=== PATIENT | male | born 1950 | race Hispanic/Latino ===

== ENCOUNTER 2017-06-28 20:58 | Observation (INO) | payer MEDICARE, BC ==
[2017-06-28 20:58] VITALS: BMI 31.8
--- NOTE | 2017-06-28 21:15 | ED PDOC ---
Arrival/HPI - General Chief Complaint: Chest Pain Time Seen by Provider: 06/28/17 21:00 Historian: Patient - History of Present Illness Narrative History of Present Illness (Text): 06/28/17 21:12 Shawn Gordon is a 67 year old male, whose past medical; history includes hyperlipidemia, CAD with stents, and OK, who presents to the Emergency department complaining of mid-sternal chest pain tonight. Patient also reports associated shakiness. Patient notes he recently saw his PMD and underwent a stress test, stopped after 10 minutes due to fatigue. Patient denies any fever, chills, shortness of breath, nausea, vomiting, diarrhea, urinary symptoms, back pain, neck pain, headache, dizziness, or any other complaints. PMD: Dr. Andrés Vera Sample Supervisor: Dr. Martinez Time/Duration: Other (tonight) Symptom Onset: Gradual Symptom Course: Unchanged Activities at Onset: Light Context: Home Past Medical History - Provider Review Nursing Documentation Reviewed: Yes - Infectious Disease Hx of Infectious Diseases: None - Tetanus Immunization Tetanus Immunization: Unknown - Past Medical History Past Medical History: No Previous - Cardiac Hx Cardiac Disorders: Yes Hx Hypertension: Yes - Pulmonary Hx Respiratory Disorders: No (Denied.) - Neurological Hx Neurological Disorder: No (Denied.) - HEENT Hx HEENT Disorder: Yes (Wears glasses.) - Renal Hx Renal Disorder: No (Denied.) - Endocrine/Metabolic Hx Endocrine Disorders: No (Denied.) - Hematological/Oncological Hx Blood Disorders: No (Denied.) - Integumentary Hx Dermatological Disorder: No (Denied.) - Musculoskeletal/Rheumatological Hx Musculoskeletal Disorders: Yes Hx Back Pain: Yes (Hx of "Slipped Disc". Sees a chiropactor.) Hx Falls: No - Gastrointestinal Hx Gastrointestinal Disorders: No (Denied. Hx of Colonoscopy with Dr. Daniels.) - Genitourinary/Gynecological Hx Genitourinary Disorders: No (Denied.) - Psychiatric Hx Psychophysiologic Disorder: No (Denied.) Hx Substance Use: No - Past Surgical History Past Surgical History: Non-Contributing - Surgical History Hx Cardiac Catheterization: Yes (stent x1 - MID LAD) - Anesthesia Hx Anesthesia: Yes Hx Anesthesia Reactions: No Hx Malignant Hyperthermia: No - Suicidal Assessment Feels Threatened In Home Enviroment: No Family/Social History - Physician Review Nursing Documentation Reviewed: Yes Family/Social History: Unknown Family HX Smoking Status: Never Smoked Hx Alcohol Use: Yes (Occasional glass of wine with dinner.) Frequency of alcohol use: Socially Hx Substance Use: No Allergies/Home Meds Allergies/Adverse Reactions: Allergies No Known Allergies Allergy (Verified 06/28/17 21:10) Home Medications: Home Meds Medication Instructions Recorded Confirmed Aspirin [Aspirin EC] 81 mg PO DAILY 10/24/14 06/28/17 Atorvastatin [Lipitor] 20 mg PO DIN 10/24/14 06/28/17 Clopidogrel [Plavix] 75 mg PO DAILY 10/24/14 06/28/17 Metoprolol Succinate 50 mg PO HS 10/24/14 06/28/17 Ramipril [Altace] 1.25 mg PO DAILY 06/26/17 06/28/17 Review of Systems - Physician Review All systems were reviewed & negative as marked: Yes - Review of Systems Constitutional: Other (+shakiness). absent: Fevers Eyes: Normal ENT: Normal Respiratory: Normal. absent: SOB, Cough Cardiovascular: Chest Pain Gastrointestinal: Normal. absent: Abdominal Pain, Diarrhea, Nausea Genitourinary Male: Normal. absent: Dysuria, Frequency, Hematuria, Urinary Output Changes Musculoskeletal: Normal. absent: Back Pain, Neck Pain Skin: Normal. absent: Rash Neurological: Normal. absent: Headache, Dizziness Endocrine: Normal Hemo/Lymphatic: Normal Psychiatric: Normal Physical Exam Vital Signs Reviewed: Yes Vital Signs Pulse Resp BP Pulse Ox 06/28/17 22:46 79 16 136/68 97 06/28/17 21:07 83 16 177/74 H 98 Temperature: Afebrile Blood Pressure: Normal Pulse: Regular Respiratory Rate: Normal Appearance: Positive for: Well-Appearing, Non-Toxic, Comfortable Pain Distress: None Mental Status: Positive for: Alert and Oriented X 3 - Systems Exam Head: Present: Atraumatic, Normocephalic Pupils: Present: PERRL Extroacular Muscles: Present: EOMI Conjunctiva: Present: Normal Mouth: Present: Moist Mucous Membranes Neck: Present: Normal Range of Motion Respiratory/Chest: Present: Clear to Auscultation, Good Air Exchange. No: Respiratory Distress, Accessory Muscle Use Cardiovascular: Present: Regular Rate and Rhythm, Normal S1, S2. No: Murmurs Abdomen: Present: Normal Bowel Sounds. No: Tenderness, Distention, Peritoneal Signs Back: Present: Normal Inspection Upper Extremity: Present: Normal Inspection. No: Cyanosis, Edema Lower Extremity: Present: Normal Inspection. No: Edema Neurological: Present: GCS=15, CN II-XII Intact, Speech Normal Skin: Present: Warm, Dry, Normal Color. No: Rashes Psychiatric: Present: Alert, Oriented x 3, Normal Insight, Normal Concentration Medical Decision Making ED Course and Treatment: 06/28/17 21:12 Impression: 67 year old male complaining of chest pain tonight. Differential Diagnosis included but are not limited to: chest pain vs. ACS Plan: -- EKG -- Chest X-Ray -- Labs, cardiac enzymes, lipase -- Aspirin -- Reassess and disposition Prior Visits: Notes and results from previous visits were reviewed. On 06/26/2017, pt underwent a stress, stopped after 10 minutes due to fatigues. No ST/T wave changes noted. Progress Notes: Reviewed EKG, NSR at 82 bpm. 1st degree AV block. LAD. Non-specific ST/T wave changes. 06/28/17 22:49 Reviewed radiology, CXR shows no acute processes. 06/28/17 23:[address] Vera, who is aware and agrees with plan. Accepts pt in to her service. Pt will go to Telemetry observation for chest pain. Requests Dr. Martinez on consult. Pt is no acute distress. Discussed results and hospital observation plan with pt , who is aware and verbalizes understanding. - Lab Interpretations Lab Results: 06/28/17 21:35 06/28/17 21:35 Lab Results 06/28/17 21:35: WBC 5.5 D, RBC 4.43, Hgb 14.3, Hct 41.3 L, MCV 93.2, MCH 32.3, MCHC 34.6, RDW 12.6, Plt Count 150, MPV 12.6 H 06/28/17 21:35: Sodium 138, Potassium 3.6, Chloride 101, Carbon Dioxide 28, Anion Gap 13, BUN 18, Creatinine 0.8, Est GFR ( Amer) > 60, Est GFR (Non- Af Amer) > 60, Random Glucose 98, Calcium 9.3, Total Bilirubin 0.8, AST 46, ALT 48, Alkaline Phosphatase 68, Lactate Dehydrogenase 551, Total Creatine Kinase 401 H, CK-MB (CK-2) 4.4 H, CK-MB (CK-2) % Cancelled, Troponin I 0.02 D, Total Protein 7.0, Albumin 4.1, Globulin 2.9, Albumin/Globulin Ratio 1.4 06/28/17 21:35: PT 11.7, INR 1.07, APTT 26.6 I have reviewed the lab results: Yes - RAD Interpretation Radiology Orders: 06/28/17 21:18 CHEST PORTABLE [RAD] Stat Medication Administration Professional: ED Physician - EKG Interpretation Interpreted by ED Physician: Yes Type: 12 lead EKG - Medication Orders Current Medication Orders: Discontinued Medications Aspirin (Aspirin) 325 mg PO ONCE STA Stop: 06/28/17 21:18 Last Admin: 06/28/17 22:02 Dose: 325 mg - Scribe Statement The provider has reviewed the documentation as recorded by the Esdrasibelina Yarbrough All medical record entries made by the Esdrasibelina were at my direction and personally dictated by me. I have reviewed the chart and agree that the record accurately reflects my personal performance of the history, physical exam, medical decision making, and the department course for this patient. I have also personally directed, reviewed, and agree with the discharge instructions and disposition. Disposition/Present on Arrival - Present on Arrival Any Indicators Present on Arrival: No History of DVT/PE: No History of Uncontrolled Diabetes: No Urinary Catheter: No History of Decub. Ulcer: No History Surgical Site Infection Following: None - Disposition Have Diagnosis and Disposition been Completed?: Yes Diagnosis: Chest pain Disposition: HOSPITALIZED Disposition Time: 23:06 Patient Plan: Observation Patient Problems: Current Active Problems Problem Status Onset Chest pain Acute Condition: STABLE
[2017-06-28 21:49] LABS: HEMATOCRIT 41.3 % (42.0-52.0); MEAN CELL VOLUME 93.2 fl (80.0-105.0); MEAN CORPUSCULAR HEMOGLOBIN 32.3 pg (25.0-35.0); MEAN CORPUSCULAR HGB CONC 34.6 g/dl (31.0-37.0); MEAN PLATELET VOLUME 12.6 fl (7.0-11.0); RED CELL DISTRIBUTION WIDTH 12.6 % (11.5-14.5); WHITE BLOOD COUNT 5.5 10^3/ul (4.5-11.0)
[2017-06-28 22:01] LABS: ALB/GLOB RATIO 1.4 (1.1-1.8); ALKALINE PHOSPHATASE 68 U/L (38-126); ALT/SGPT 48 U/L (7-56); AST/SGOT 46 U/L (17-59); BILIRUBIN,TOTAL 0.8 mg/dL (0.2-1.3); BLOOD UREA NITROGEN 18 mg/dL (7-21); CALCIUM 9.3 mg/dL (8.4-10.5); CARBON DIOXIDE 28 mmol/L (21-33); CHLORIDE 101 mmol/L (98-107); GFR AFRICAN-AMERICAN > 60; GLUCOSE,RANDOM 98 mg/dL (70-110); POTASSIUM 3.6 mmol/L (3.6-5.0); SODIUM 138 mmol/L (132-148)
[2017-06-28 22:08] LABS: INR 1.07 (0.93-1.08); PARTIAL THROMBOPLASTIN TIME 26.6 Seconds (25.1-36.5)
[2017-06-28 22:11] LABS: TROPONIN I 0.02 ng/mL
[2017-06-29 00:03] VITALS: RESP 20
[2017-06-29 01:06] VITALS: O2SAT 98
[2017-06-29 06:03] VITALS: TEMP 98.4
--- NOTE | 2017-06-29 08:20 | RAD ---
HISTORY: chest pain COMPARISON: 10/22/2014 FINDINGS: LUNGS: No active pulmonary disease. PLEURA: No significant pleural effusion identified, no pneumothorax apparent. CARDIOVASCULAR: Normal. OSSEOUS STRUCTURES: Bony hypertrophic changes are seen at the end of the right 1st rib. These were seen previously VISUALIZED UPPER ABDOMEN: Normal. OTHER FINDINGS: None. IMPRESSION: No active disease.
[2017-06-29] MEDS ORDERED: Metoprolol Succinate 50 mg XL Tab PO SCH (09:45)
[2017-06-29 10:10] VITALS: BP 143/70
[2017-06-29 10:26] LABS: TROPONIN I < 0.01 ng/mL
[2017-06-29 12:09] VITALS: PULSE 69
--- NOTE | 2017-06-29 14:46 | HP ---
HISTORY OF PRESENT ILLNESS: The patient is 67-year-old seen and examined. The patient was seen earlier in office yesterday for his well visit. He recently had stress test done. He ran on treadmill for nine minutes and was stopped because of the fatigue. The patient states later on yesterday he started to have discomfort, it was similar to when he has heart attack. He did not to want to take any chance, so he came to the emergency room for further evaluation. Although on examination, the patient looks comfortable right now and ready to go home. Denies any nausea or vomiting. He did feel bloated and gassy. Denies any fever or chills. No cough or congestion. PAST MEDICAL HISTORY: Significant for hypertension, hyperlipidemia, and status post CO in 09/2014, at that point he had angioplasty done. ALLERGIES: NOT ALLERGIC TO ANY MEDICATIONS. MEDICATIONS AT HOME: He is on Plavix 75 mg daily, aspirin 81 mg daily, ramipril 1.25 mg daily, atorvastatin 20 mg daily, and metoprolol 50 mg at bedtime. SOCIAL HISTORY: He was now . Never smoked. Socially drinks. REVIEW OF SYSTEMS: Not significant for any complaints right now. PHYSICAL EXAMINATION GENERAL: He is awake, alert, oriented, and communicative. VITAL SIGNS: He is afebrile, pulse 69, respirations 20, and blood pressure 143/70. LUNGS: Bilateral fair airflow, no rhonchi or crackle. HEART: S1 and S2 audible. ABDOMEN: Soft and nontender. No rebound. No guarding. NEUROLOGIC: He is awake, alert, oriented, and communicative. LABORATORY DATA: WBC 5.5, hemoglobin 14, hematocrit 41, and platelet 150. PT 11.7, INR 1.07. Chemistry; sodium 138, potassium 3.6, chloride 101, CO2 is 28, BUN 18, creatinine is 0.8, and blood sugar of 98. LFTs are within normal limits. CPK is 401, followup is 309. ASSESSMENT: 1. Noncardiac chest pain. 2. History of coronary artery disease and angioplasty in 2014. 3. Hyperlipidemia. PLAN: We will follow third cardiac enzyme. If it is stable, he will be discharged later on today. Axel Vera MD
--- NOTE | 2017-06-29 20:35 | CARD ---
APPROVED REPORT EKG Measurement Heart [id number] <Conclusion> Sinus rhythm with 1st degree AV block Left axis deviation Abnormal ECG
--- NOTE | 2017-06-30 02:36 | CON ---
DATE: 06/29/2017 LOCATION: The patient is in room 266, bed 2. REASON FOR CONSULTATION: Nausea, burping, abdominal discomfort, history of coronary artery disease, and history of stent insertion in LAD in 2014. HISTORY OF PRESENT ILLNESS: A 67-year-old male admitted with the history that he started feeling discomfort in the abdomen with lot of burping and flatus-type of feeling and discomfort in the abdomen. Denies any chest pain, shortness of breath or palpitations associated with the episode. Denies any diaphoresis. The patient denies any history of exertional chest pain. The patient now feels although symptoms have resolved. PAST MEDICAL HISTORY: Significant for hypertension, hyperlipidemia, status post NH in 10/23/2014, when the patient had the stent put in LAD and at that time LV ejection fraction by visual estimation was 35% to 40%. PERSONAL HISTORY: Denies any smoking,denies drinking. ALLERGIES: THE PATIENT DENIES ANY ALLERGIES. MEDICATIONS: The patient's medications at home, the patient was on metoprolol 50 mg at bedtime, Plavix 75 mg daily, Ecotrin 81 mg daily, ramipril 1.25 p.o. daily, and atorvastatin 20 mg daily. REVIEW OF SYSTEMS: All the systems reviewed, positive mentioned in the history, others are negative. PHYSICAL EXAMINATION: VITAL SIGNS: Blood pressure 143/74, respirations 20, pulse 58 and temperature 98.4. HEENT: Head is normocephalic. Eyes, pupils normal, conjunctivae normal. Nose and throat normal. NECK: JVP is low. Carotid equal. THORAX: AP diameter is normal. LUNGS: Clear. CARDIOVASCULAR: S1 and S2. ABDOMEN: Soft. No tenderness. No organomegaly. Bowel sounds normal. EXTREMITIES: No clubbing. No cyanosis. LABORATORY DATA: WBC 5.5, hemoglobin 14.3, hematocrit 41.3 and platelets 150. Sodium 138, potassium 3.6, BUN 18, and creatinine 0.8. Magnesium on 10/24/2014 was normal. The patient's on this admission, AST and ALT normal. Troponin x2 negative. Total protein and albumin normal. Chest x-ray, no acute disease. EKG showed regular sinus rhythm, prolonged ID, left anterior hemiblock. No ST changes seen. The patient had stress test on 06/26/2017, which showed fixed defect and normal LV function with ejection fraction of 63%. DIAGNOSES: Abdominal discomfort with nausea and burping and flatus-type feeling, probably gastrointestinal in origin, no evidence of acute coronary syndrome, history of coronary artery disease, history of angioplasty and stent insertion in left anterior descending artery on 10/23/2014, hypertension, and hyperlipidemia. We will continue present therapy with the patient and we will follow with you. Sofía Saba MD
== END 2017-06-29 14:29 | disposition home or self-care (01) ==
LOC: ED 20:58 → ERH 23:01 → 2RNO 23:50
PROVIDERS: ADMIT Internal Medicine; ATTEND Internal Medicine
DX: R07.89 Other chest pain (principal); I10 Essential (primary) hypertension; R11.0 Nausea; E78.5 Hyperlipidemia, unspecified; I25.2 Old myocardial infarction; I25.10 Atherosclerotic heart disease of native coronary artery without angina pectoris; Z95.5 Presence of coronary angioplasty implant and graft; Z79.82 Long term (current) use of aspirin
CPT/HCPCS: 36415; 71010; 80053; 82550; 82553; 82948; 83615; 84484; 85027; 85610; 85730; 93005; 99285; G0378